=== PATIENT | male | born 1975 | race Caucasian/White ===

== ENCOUNTER 2018-11-15 15:00 | Emergency (ER) | payer BC, SELFPAY ==
--- NOTE | 2018-11-15 15:47 | RAD ---
LEFT TIBIA FIBULA 2 VIEWS: HISTORY: Injury. FINDINGS: There is a fracture involving the distal fibula. See dedicated ankle films. The proximal tibia and fibula are unremarkable. IMPRESSION: Fracture distal fibula. POS: OFF
--- NOTE | 2018-11-15 15:48 | RAD ---
LEFT AKNLE 3 VIEWS: HISTORY: Injury. FINDINGS: There is an oblique oriented mildly displaced fracture of the lateral malleolus. Soft tissue swellin g. There is subluxation at the tibiotalar joint with widening of the medial joint. IMPRESSION: Obliquely oriented mildly displaced fracture of the distal fibula. There is subluxation of the tibio talar joint. POS: OFF
[2018-11-15] MEDS ORDERED: Morphine 4 MG/ML VIAL ONE (16:11)
== END 2018-11-15 16:48 | disposition home or self-care (01) ==
LOC: SCSER 15:00
DX: S82.62XA Displaced fracture of lateral malleolus of left fibula, initial encounter for closed fracture (principal); W01.0XXA Fall on same level from slipping, tripping and stumbling without subsequent striking against object, initial encounter
CPT/HCPCS: 27840; 96372; J2270

== ENCOUNTER 2018-11-18 11:09 | Day surgery (SDC) | payer BC ==
[2018-11-17 09:53] VITALS: BMI 28.0
[2018-11-18] MEDS ORDERED: Midazolam HCl 2 mg/2 ml Vial ONE (13:18)
[2018-11-18] MEDS ORDERED: Fentanyl 100 MCG/2 ML VIAL ONE ×4 (13:18→15:25)
[2018-11-18] MEDS ORDERED: Dexamethasone 4 mg/ml Vial ONE (13:32)
[2018-11-18] MEDS ORDERED: Bupivacaine HCl 0.5%/Epinephrine 1:200,000/PF 30 ml Vial ONE (14:43)
[2018-11-18] MEDS ORDERED: Ropivacaine 0.5% HCl/PF (150 MG/30 ML VIAL) ONE (14:43)
--- NOTE | 2018-11-18 14:52 | RAD ---
RIGHT ANKLE TWO VIEWS: HISTORY: Status post ORIF. FINDINGS: A metal plate and multiple screws are noted stabilizing the lateral malleolus. The ankle mortise vj ears to be maintained. IMPRESSION: 1. Metal plate and screws stabilizing the distal fibula. 2. The ankle mortise appears to be maintained and is in an improved position from the pre-surgical s tudy. POS: OFF
[2018-11-18] MEDS ORDERED: Ketorolac Tromethamine 30 MG/ML VIAL ONE (15:16)
[2018-11-18] MEDS ORDERED: Lidocaine 1% PF 5 ML VIAL ONE (15:16)
[2018-11-18] MEDS ORDERED: Ondansetron PF 4 MG/2 ML Vial ONE (15:16)
[2018-11-18] MEDS ORDERED: PROPOFOL 200 MG/20 ML VIAL ONE (15:16)
[2018-11-18] MEDS ORDERED: Ondansetron PF 4 MG/2 ML Vial IVP PRN (15:25)
[2018-11-18] MEDS ORDERED: Ketorolac Tromethamine 30 MG/ML VIAL IVP PRN (15:25)
[2018-11-18] MEDS ORDERED: Ropivacaine 0.2% 550 ML 550 ML NERVE BLCK SCH (15:25)
[2018-11-18] MEDS ORDERED: HYDROcodone/Acetaminophen 10/325 mg Tablet PO PRN ×2 (15:25)
[2018-11-18] MEDS ORDERED: Fentanyl 100 MCG/2 ML VIAL IV PRN (15:25)
[2018-11-18] MEDS ORDERED: traMADol HCl 50 MG TAB PO PRN ×2 (15:25)
[2018-11-18] MEDS ORDERED: Zolpidem Tartrate 5 MG TAB PO PRN (15:25)
[2018-11-18] MEDS ORDERED: Promethazine HCl 25 MG/ML VIAL IM PRN (15:25)
--- NOTE | 2018-11-19 00:19 | OP ---
DATE OF PROCEDURE: 11/18/2018 PREOPERATIVE DIAGNOSIS: Left lateral malleolus fracture with deltoid ligament tear. POSTOPERATIVE DIAGNOSIS: Left lateral malleolus fracture with deltoid ligament tear. PROCEDURES PERFORMED: 1. Open reduction and internal fixation of left lateral malleolus. 2. Repair of left deltoid ligament. ANESTHESIA: General. METAL CABINET FINISHER: Brendan Hernandez PA-C TOURNIQUET TIME: 42 minutes at 300 mmHg. IMPLANTS: Synthes 7-hole 1/3 tubular plate with small fragment screws. COMPLICATIONS: None. DRAINS: None. SPECIMEN: None. OUTCOME: Near-anatomic alignment. INDICATIONS FOR PROCEDURE: The patient is a pleasant 43-year-old gentleman, who is status post stepped in hole and twist of his left ankle sustaining a lateral malleolus fracture with lateral displacement of the talus within the mortise. After discussion with the patient including risks and benefits, we decided to proceed with open reduction and internal fixation with or without deltoid ligament repair to try and restore normal anatomy and function of the ankle. Informed consent has been obtained, I believe all questions have been answered. DESCRIPTION OF PROCEDURE: The patient was brought to the operating room and a time-out performed followed by induction of general anesthesia. Next, a sterile prep and drape was performed in the left lower extremity. The limb was then exsanguinated with Esmarch bandage, tourniquet inflated to 300 mmHg. A lateral incision was made following the path of the distal fibula. After, the skin was sharply incised, dissection was carried down bluntly exposing the lateral malleolus and its fracture. A periosteal elevator was used to remove some of the periosteum from within the fracture gap. A curette and syringe with normal saline was then used to lavage and remove the fracture hematoma. Once cleaned of soft tissue, the fracture ends were reapproximated and held in place with a bone tenaculum. Anatomic alignment was achieved. Next, an anterior to posterior interfragmentary screw was placed in standard fashion getting compression across the fracture line. This was followed by placement of a 7-hole 1/3 tubular neutralization device along the lateral cortex of the distal fibula. This plate was held in place with 3 cortical screws proximal and 3 cancellous screws distal to the fracture. At the completion of this, AP, lateral, and mortise x-rays of the ankle were obtained. There was found to be still some mild residual widening at the medial joint space and as such, it was opted to proceed with exposing of the medial joint space to ensure that the deltoid ligament had not become incarcerated in the joint. A second incision was then made medially, centered over the medial malleolus. After, skin was sharply incised, dissection was carried down bluntly exposing the tear of the deltoid ligament and indeed some of the ligament was entrapped within the joint itself. This was removed from the joint and then reapproximated with 2-0 Vicryl in interrupted fashion. At the completion of this, final AP, lateral, and mortise x-rays were then obtained that showed quaker of normal anatomy with closure of the medial joint space gap. Both wounds were then irrigated with bulb syringe. A lateral incision closed in layers with 0 Vicryl deep followed by 2-0 Vicryl, then nylon. Nylon was also used to reapproximate the medial incision. Xeroform gauze, Webril, and fiberglass splint were applied to the ankle and then tourniquet was let down and the patient transferred to recovery room in stable condition. There were no complications. The patient tolerated the procedure well. Job ID: [id number]
== END 2018-11-18 18:15 | disposition home or self-care (01) ==
LOC: SDC 11:09
PROVIDERS: ATTEND Orthopaedic Surgery
PROC: 0MQR0ZZ Repair Left Ankle Bursa and Ligament, Open Approach (ICD-10-PCS; principal; 2018-11-18)
PROC: 0QSK04Z Reposition Left Fibula with Internal Fixation Device, Open Approach (ICD-10-PCS; principal; 2018-11-18)
DX: S82.62XA Displaced fracture of lateral malleolus of left fibula, initial encounter for closed fracture (principal); S93.422A Sprain of deltoid ligament of left ankle, initial encounter; X50.1XXA Overexertion from prolonged static or awkward postures, initial encounter; W18.42XA Slipping, tripping and stumbling without falling due to stepping into hole or opening, initial encounter
CPT/HCPCS: 76000; A4306; C1713; J0670; J0690; J1100; J1885; J2001; J2250; J2405; J2704; J2795; J3010